=== PATIENT | female | born 1950 | race Caucasian/White ===

== ENCOUNTER 2024-12-28 11:30 | Emergency (ER) | payer OTHER ==
[~2024-12-28] VITALS: Ht 162.6 cm; Wt 75.0 kg
[2024-12-28 11:34] VITALS: O2SAT 99
[2024-12-28 11:48] VITALS: TEMP 36.6
[2024-12-28 12:20] LABS: BASOPHILS % 0.5 % (0.0-2.0); EOSINOPHILS % 1.0 % (0.0-5.0); HEMATOCRIT. 36.8 % (36.0-48.0); HEMOGLOBIN. 12.6 g/dL (12.0-16.0); LYMPHOCYTES % 17.5 % (20.0-50.0); MEAN PLATELET VOLUME 7.3 fl (7.4-10.4); MONOCYTES % 3.9 % (2.0-8.0); NEUTROPHILS % 77.1 % (40.0-76.0); PLATELET 208 x1000/uL (130-400); RED BLOOD CELL COUNT 4.22 mill/uL (4.2-5.4); RED CELL DISTRIBUTION WIDTH 13.0 % (11.6-14.6)
[2024-12-28 12:33] LABS: CREATININE 0.7 mg/dL (0.6-1.0); UREA NITROGEN BLOOD 11 mg/dL (9-23)
[2024-12-28] MEDS: ACETAMINOPHEN 1000MG/100ML 100 ML IV ONE (13:23)
[2024-12-28] MEDS: SODIUM CHLORIDE 0.9% 1,000 ML IV ONE (16:09)
[2024-12-28] MEDS ORDERED: DEXAMETHASONE 10 MG/ML VIAL IV ONE (16:15)
[2024-12-28] MEDS: DEXAMETHASONE 10 MG/ML VIAL IV SCH (16:18)
[2024-12-28 17:23] VITALS: BP 141/60; PULSE 80; RESP 14; O2SAT 98
== END 2024-12-28 17:35 | disposition home or self-care (01) ==
LOC: ER 11:30
DX: R53.1 Weakness (principal); M54.50 Low back pain, unspecified; M25.561 Pain in right knee; M25.562 Pain in left knee; I10 Essential (primary) hypertension; E11.9 Type 2 diabetes mellitus without complications; G43.909 Migraine, unspecified, not intractable, without status migrainosus
CPT/HCPCS: 80048; 82962; 85025; 36415; 71045; 73560; 70450; 72125; 72131; 93005; 96365; 96375; 99285; J1100; J7030; Z7610 ×2; A6449; A4606; J0131